=== PATIENT | female | born 2000 | race Caucasian/White ===

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

== ENCOUNTER 2023-06-08 07:51 | Day surgery (SDC) | payer OTHER ==
[~2023-06-08] VITALS: Ht 167.6 cm; Wt 64.6 kg
[~2023-06-08 07:51] MED LIST changes: +[UNRECOGNIZED DRUG - CODE]
[2023-06-08] MEDS ORDERED: LR 1,000 ML IV SCH ×3 (08:15→11:50)
[2023-06-08] MEDS ORDERED: SILVER NITRATE APPLICATOR (1 = QTY 10) As Ordered ONE (09:31)
[2023-06-08] MEDS ORDERED: BACITRACIN OINTMENT 30GM TUBE As Ordered ONE (09:31)
[2023-06-08] MEDS ORDERED: THROMBIN 5,000 UNITS VIAL As Ordered ONE (09:31)
[2023-06-08] MEDS ORDERED: propofoL 200 MG/20 ML VIAL As Ordered ONE ×2 (09:37→11:03)
[2023-06-08] MEDS ORDERED: fentaNYL 100 MCG/2 ML INJECTION As Ordered ONE ×2 (09:37→10:53)
[2023-06-08] MEDS ORDERED: LIDOCAINE 2% 100MG/5ML SDV (FOR ANES.) As Ordered ONE (09:37)
[2023-06-08] MEDS ORDERED: MIDAZOLAM INJ 2MG/2ML VIAL As Ordered ONE (09:37)
[2023-06-08] MEDS ORDERED: ROCURONIUM BROMIDE 50MG/5ML VIAL As Ordered ONE (09:40)
[2023-06-08] MEDS ORDERED: ONDANSETRON 4MG 2ML VIAL As Ordered ONE (10:09)
[2023-06-08] MEDS ORDERED: SUGAMMADEX SODIUM 500 MG/5 ML VIAL (BRIDION) As Ordered ONE (10:23)
[2023-06-08] MEDS ORDERED: EPINEPHrine INJ 1 MG/ML 1ML AMP As Ordered ONE (10:38)
[2023-06-08] MEDS ORDERED: EPINEPHrine 1MG/ML INJ 30ML MD-VIAL As Ordered ONE (10:45)
[2023-06-08] MEDS ORDERED: ONDANSETRON 4MG 2ML VIAL IV PRN (11:25)
[2023-06-08] MEDS ORDERED: oxyCODONE 5MG TAB PO PRN (11:25)
[2023-06-08] MEDS ORDERED: OXYMETAZOLINE 0.05% NASAL SPRAY (AFRIN) PRN (11:50)
[2023-06-08] MEDS: fentaNYL 100 MCG/2 ML INJECTION IV PRN ×2 (12:05→12:10)
[2023-06-08 13:10] VITALS: BP 116/70; TEMP 98.7; O2SAT 98
== END 2023-06-08 13:15 | disposition home or self-care (01) ==
LOC: M SDC 07:51
PROVIDERS: ATTEND Otolaryngology
DX: J35.2 Hypertrophy of adenoids (principal); J31.0 Chronic rhinitis; H69.93 Unspecified Eustachian tube disorder, bilateral; J34.89 Other specified disorders of nose and nasal sinuses; Z79.899 Other long term (current) drug therapy
CPT/HCPCS: 31237; 42831; 81025; 88305; J0171; J1100; J2250; J2405; J3010

== ENCOUNTER 2023-07-20 07:30 | Day surgery (SDC) | payer OTHER ==
[~2023-07-20] VITALS: Ht 167.6 cm; Wt 62.1 kg
[~2023-07-20 07:30] MED LIST changes: +[UNRECOGNIZED DRUG - CODE] PO
[2023-07-20] MEDS ORDERED: MIDAZOLAM INJ 2MG/2ML VIAL As Ordered ONE (09:29)
[2023-07-20] MEDS ORDERED: fentaNYL 100 MCG/2 ML INJECTION As Ordered ONE (09:29)
[2023-07-20] MEDS ORDERED: propofoL 200 MG/20 ML VIAL As Ordered ONE (09:30)
[2023-07-20] MEDS ORDERED: LIDOCAINE 2% 100MG/5ML SDV (FOR ANES.) As Ordered ONE (09:30)
[2023-07-20] MEDS ORDERED: ROCURONIUM BROMIDE 50MG/5ML VIAL As Ordered ONE (09:30)
[2023-07-20] MEDS ORDERED: SUGAMMADEX SODIUM 500 MG/5 ML VIAL (BRIDION) As Ordered ONE (09:30)
[2023-07-20] MEDS ORDERED: LR 1,000 ML IV SCH (09:55)
[2023-07-20] MEDS ORDERED: OXYMETAZOLINE 0.05% NASAL SPRAY (AFRIN) As Ordered ONE (09:56)
[2023-07-20] MEDS ORDERED: ONDANSETRON 4MG 2ML VIAL IV PRN (10:20)
[2023-07-20] MEDS ORDERED: MORPHINE 2 MG/ML 1ML VIAL IV PRN (10:20)
[2023-07-20] MEDS ORDERED: oxyCODONE 5MG TAB PO PRN (10:20)
[2023-07-20] MEDS ORDERED: fentaNYL 100 MCG/2 ML INJECTION IV PRN (10:20)
[2023-07-20 13:05] VITALS: BP 96/54; TEMP 97.6; O2SAT 96
== END 2023-07-20 13:05 | disposition home or self-care (01) ==
LOC: M SDC 07:30
PROVIDERS: ATTEND Otolaryngology
DX: J35.2 Hypertrophy of adenoids (principal)
CPT/HCPCS: 42831; 81025; J2250; J2405; J3010